=== PATIENT | female | born 1980 | race Hispanic/Latino ===

== ENCOUNTER 2017-08-11 14:59 | Emergency (ER) | payer OTHER ==
[~2017-08-11] VITALS: Ht 152.4 cm; Wt 78.9 kg
[2017-08-11 16:33] LABS: BASOPHILS # (AUTO) 0.1 (0.0-0.1); BASOPHILS % 0.6 % (0.0-1.0); EOSINOPHILS # (AUTO) 0.1 (0.0-0.4); EOSINOPHILS % 0.9 % (0.0-6.0); HEMATOCRIT 32.5 % (34.2-44.1); HEMOGLOBIN 9.6 g/dL (12.0-16.0); LYMPHOCYTES # (AUTO) 2.1 (1.0-3.2); MEAN CORPUSCULAR HEMOGLOBIN 21.2 pg (28-32); MEAN CORPUSCULAR HGB CONC 29.5 g/dL (31-35); MEAN CORPUSCULAR VOLUME 71.7 fL (81-99); MONOCYTES # (AUTO) 0.6 (0.2-0.8); MONOCYTES % 6.3 % (4.4-11.3); NEUTROPHILS # (AUTO) 6.1 (2.1-6.9); PLATELET COUNT 228 x10e3/uL (140-360); RED BLOOD COUNT 4.53 x10e6/uL (3.6-5.1); RED CELL DISTRIBUTION WIDTH 17.9 % (11.7-14.4)
[2017-08-11 16:34] LABS: BILIRUBIN,URINE 1+ (NEGATIVE); CLARITY,URINE CLEAR (CLEAR); COLOR,URINE YELLOW (YELLOW); KETONES,URINE TRACE (NEGATIVE); LEUKOCYTE ESTERASE ,URINE 1+ (NEGATIVE); NITRITE,URINE NEGATIVE (NEGATIVE); PROTEIN,URINE DIPSTICK NEGATIVE (NEGATIVE); URINE UROBILINOGEN 4 mg/dL (0.2 - 1)
[2017-08-11 16:38] LABS: PREGNANCY TEST, URINE NEGATIVE (NEGATIVE)
[2017-08-11 16:43] LABS: ALANINE AMINOTRANSFERASE 111 IU/L (0-55); ALBUMIN 3.5 g/dL (3.5-5.0); ALBUMIN/GLOBULIN RATIO 0.8 (0.8-2.0); ALKALINE PHOSPHATASE 105 IU/L (40-150); ANION GAP 11.6 mmol/L (8-16); BLOOD UREA NITROGEN 13 mg/dL (7-26); BUN/CREATININE RATIO 15 (6-25); CALCIUM 9.2 mg/dL (8.4-10.2); CARBON DIOXIDE 26 mmol/L (22-29); CHLORIDE 105 mmol/L (98-107); CREATININE, SERUM 0.84 mg/dL (0.57-1.11); EST GLOMERULAR FILTRATION RATE > 60 ML/MIN (60-); GLUCOSE 89 mg/dL (74-118); POTASSIUM 3.6 mmol/L (3.5-5.1); SODIUM 139 mmol/L (136-145)
[2017-08-11 16:55] LABS: BACTERIA,URINE FEW /HPF; EPITHELIAL CELLS,URINE FEW /LPF; WBC,URINE (MAN) 0-5 /HPF (0-5)
[2017-08-11] MEDS ORDERED: IOPAMIDOL 370 MG/ML 200 ML INFUS..BTL INJ ONE (17:31)
--- NOTE | 2017-08-11 17:56 | Diagnostic Imaging Report ---
PROCEDURE: CT ABDOMEN AND PELVIS WITH CONTRAST TECHNIQUE: The abdomen and pelvis were scanned utilizing a multidetector helical scanner from the diaphragm to the lesser trochanter after the IV administration of 100 cc of Isovue 370 and the oral administration of water. Coronal and sagittal multiplanar reformations were obtained. COMPARISON: None. INDICATIONS: LEFT UPPER QUADRANT PAIN FINDINGS: LOWER THORAX: 2 mm pulmonary nodule in the left lower lobe (series 2, image 8). HEPATOBILIARY: Borderline hepatomegaly, measuring 15.5 cm in the right midclavicular line. Decreased attenuation of the parenchyma compared to the spleen, consistent with mild steatosis. No focal lesions. No biliary ductal dilation. Gallbladder is unremarkable. SPLEEN: No splenomegaly. PANCREAS: No focal masses or ductal dilatation. ADRENALS: No adrenal nodules. KIDNEYS/URETERS: No hydronephrosis, stones, or solid mass lesions. PELVIC ORGANS/BLADDER: Bladder and uterus are unremarkable. Small amount of fluid in the endometrial cavity. No adnexal masses. PERITONEUM / RETROPERITONEUM: No free air or fluid. LYMPH NODES: No lymphadenopathy. VESSELS: Unremarkable. GI TRACT: No bowel dilation or evidence of obstruction. No pericolonic inflammatory changes. The appendix is identified, and normal in caliber. BONES AND SOFT TISSUES: No aggressive lytic or sclerotic lesion. Mild grade 1 anterolisthesis of L5 on S1 secondary to bilateral pars interarticularis defects. IMPRESSION: 1. no acute abdominopelvic abnormalities. Specifically, no acute abnormal findings in the left upper quadrant to explain the patient's pain. 2. Borderline hepatomegaly with mild steatosis. No focal lesions. Ry Clement M.D. Dictated by: Ry Clement M.D. on 08/11/2017 at 18:05 Electronically approved by: Ry Clement M.D. on 08/11/2017 at 18:05
[2017-08-12] MEDS ORDERED: SODIUM CHLORIDE 0.9% INJ 50 ML BAG IV ONE (08:47)
[2017-08-24] MEDS ORDERED: DICYCLOMINE HCL20 MG PO (11:26)
[2017-08-24] MEDS ORDERED: FERROUS SULFAT325 MG PO (11:27)
[2017-08-24] MEDS ORDERED: LEVOTHYROXINE75 MCG PO (11:27)
[2017-08-24] MEDS ORDERED: NORGESTIMATE-E1 EAC1 PO (11:28)
== END 2017-08-11 19:07 | disposition home or self-care (01) ==
LOC: ER 14:59
DX: R10.12 Left upper quadrant pain (principal); R11.0 Nausea; D25.9 Leiomyoma of uterus, unspecified; E03.9 Hypothyroidism, unspecified
CPT/HCPCS: 36415; 74177; 80053; 81001; 81025; 85025; 87086; 99284; Q9967

== ENCOUNTER 2017-08-13 16:30 | Emergency (ER) | payer OTHER ==
[~2017-08-13] VITALS: Ht 152.4 cm; Wt 78.9 kg
[2017-08-13] MEDS ORDERED: ONDANSETRON HCL INJ 2 MG/ML VIAL IV STA (17:48)
[2017-08-13] MEDS ORDERED: MORPHINE SULFATE 2 MG/ML SYR IV STA (17:48)
[2017-08-13 18:19] LABS: CLARITY,URINE CLOUDY (CLEAR); COLOR,URINE STRAW (YELLOW)
[2017-08-13 18:20] LABS: BILIRUBIN,URINE NEGATIVE (NEGATIVE); KETONES,URINE NEGATIVE (NEGATIVE); LEUKOCYTE ESTERASE ,URINE TRACE (NEGATIVE); NITRITE,URINE NEGATIVE (NEGATIVE); PROTEIN,URINE DIPSTICK NEGATIVE (NEGATIVE); URINE UROBILINOGEN 0.2 mg/dL (0.2 - 1)
[2017-08-13 18:28] LABS: BASOPHILS % 0.4 % (0.0-1.0); EOSINOPHILS # (AUTO) 0.2 (0.0-0.4); EOSINOPHILS % 2.1 % (0.0-6.0); HEMATOCRIT 31.8 % (34.2-44.1); HEMOGLOBIN 9.3 g/dL (12.0-16.0); LYMPHOCYTES # (AUTO) 2.1 (1.0-3.2); LYMPHOCYTES % 24.7 % (18.0-39.1); MEAN CORPUSCULAR HEMOGLOBIN 21.1 pg (28-32); MEAN CORPUSCULAR HGB CONC 29.2 g/dL (31-35); MEAN CORPUSCULAR VOLUME 72.3 fL (81-99); MONOCYTES # (AUTO) 0.7 (0.2-0.8); MONOCYTES % 8.6 % (4.4-11.3); NEUTROPHILS # (AUTO) 5.4 (2.1-6.9); NEUTROPHILS % 63.8 % (38.7-80.0); PLATELET COUNT 245 x10e3/uL (140-360); RED CELL DISTRIBUTION WIDTH 17.9 % (11.7-14.4)
[2017-08-13 18:43] LABS: AMORPHOUS SEDIMENT,URINE MANY (FEW); BACTERIA,URINE FEW /HPF; EPITHELIAL CELLS,URINE FEW /LPF; RBC,URINE 0-5 /HPF (0-5)
[2017-08-13 18:49] LABS: ALANINE AMINOTRANSFERASE 132 IU/L (0-55); ALBUMIN 3.6 g/dL (3.5-5.0); ALBUMIN/GLOBULIN RATIO 0.8 (0.8-2.0); ALKALINE PHOSPHATASE 109 IU/L (40-150); ANION GAP 11.7 mmol/L (8-16); BLOOD UREA NITROGEN 12 mg/dL (7-26); BUN/CREATININE RATIO 15 (6-25); CARBON DIOXIDE 25 mmol/L (22-29); CHLORIDE 105 mmol/L (98-107); CREATININE, SERUM 0.79 mg/dL (0.57-1.11); EST GLOMERULAR FILTRATION RATE > 60 ML/MIN (60-); GLUCOSE 83 mg/dL (74-118); POTASSIUM 3.7 mmol/L (3.5-5.1); SODIUM 138 mmol/L (136-145)
--- NOTE | 2017-08-13 20:49 | Diagnostic Imaging Report ---
CHEST SINGLE (PORTABLE), 08/13/2017 8:08 PM Technique: CHEST SINGLE (PORTABLE) Comparison: None available. Clinical history: Left-sided abdominal pain Findings: Unremarkable portable appearance of the heart, mediastinum, lungs and pleural spaces. No free air in the visualized upper abdomen. Radiopaque densities overlying the left medial upper hemithorax may be artifactual. Impression: 1. Lines/Tubes: None 2. No acute abnormality. Signed by: Dr Shilpa Hart MD on 08/13/2017 8:46 PM
[2017-08-13] MEDS ORDERED: ACETAMINOPHEN/CODEINE 300MG - 30MG TAB PO ONE (21:15)
[2017-08-13 22:19] VITALS: BP 139/68
[2017-08-24] MEDS ORDERED: DICYCLOMINE HCL20 MG PO (11:26)
[2017-08-24] MEDS ORDERED: FERROUS SULFAT325 MG PO (11:27)
[2017-08-24] MEDS ORDERED: LEVOTHYROXINE75 MCG PO (11:27)
[2017-08-24] MEDS ORDERED: NORGESTIMATE-E1 EAC1 PO (11:28)
== END 2017-08-13 22:21 | disposition home or self-care (01) ==
LOC: ER 16:30
DX: R10.12 Left upper quadrant pain (principal); R11.2 Nausea with vomiting, unspecified; R05 Cough; J20.9 Acute bronchitis, unspecified
CPT/HCPCS: 36415; 71010; 80053; 81001; 85025; 87086; 93005; 99284; J2270; J2405

== ENCOUNTER → 2017-08-25 | Day surgery (SDC) | payer OTHER ==
[~2017-08-25] MED LIST: DICYCLOMINE HCL20 MG PO; FENTANYL CITRATE/PF 100MCG/2 ML INJ ONE; FERROUS SULFAT325 MG PO; LEVOTHYROXINE75 MCG PO; LIDOCAINE HCL 2% LOCAL INJ 5 ML SDV VIAL INJ ONE; MIDAZOLAM HCL 2 MG/2 ML VIAL ONE; NORGESTIMATE-E1 EAC1 PO; PANTOPRAZOLE 40 MG 10ML VIAL ONE; PROPOFOL IV EMULSION 10 MG/ML 50 ML VIAL ONE; ZOFRAN ODT4 MG PO
--- NOTE | 2017-08-25 11:46 | Operative Report ---
DATE OF PROCEDURE: August 25, 2017 REFERRING PHYSICIAN: Dr. Felipa Bunch PROCEDURE PERFORMED: Esophagogastroduodenoscopy with biopsies and polypectomy. INDICATIONS FOR ESOPHAGOGASTRODUODENOSCOPY: Upper abdominal pain, nausea and vomiting. MEDICATION: Patient was done under MAC. Please see anesthesiologist's note. PROCEDURE: With the patient in left lateral decubitus position, flexible fiberoptic Olympus gastroscope was introduced into the esophagus under direct visualization without any difficulty. There was some patchy erythema noted in distal esophagus. The scope was then advanced with ease into the stomach. Mucosa overlying the antrum revealed some patchy erythema and low-grade edema, and biopsies were obtained and sent to stain for H. pylori. The mucosa overlying the distal body appeared somewhat atrophic and biopsies were obtained to rule out atrophic gastritis. The pylorus was of normal contour and shape. Was intubated with ease and the scope was advanced all the way to the 2nd portion of the duodenum. The scope was then withdrawn slowly. Mucosa overlying the proximal 2nd portion and the duodenal bulb appeared to be within normal limits. The scope was then withdrawn back into the stomach and retroflexed. Mucosa overlying the fundus and the cardia appeared to be within normal limits. A minute polyp was noted in the proximal body along the posterior wall and that was partially excised with cold biopsy forceps. The scope was then straightened out. The stomach was decompressed, the scope subsequently withdrawn. Patient tolerated the procedure well. IMPRESSION: 1. Distal esophagitis, mild. 2. Gastritis, antrum, biopsied. Biopsies sent to stain for Helicobacter pylori. 3. Rule out atrophic gastritis, distal body. 4. Gastric polyp, upper body, posterior wall. Partially excised with cold biopsy forceps. PLAN: Follow up histology. Initiate Protonix 40 mg 1 p.o. q.a.m. a.c. Job#: [id number] [place] cc:FELIPA BUNCH DO
== END | disposition home or self-care (01) ==
LOC: OR 08:08
PROVIDERS: ATTEND Internal Medicine Gastroenterology
DX: K29.50 Unspecified chronic gastritis without bleeding (principal); K31.7 Polyp of stomach and duodenum; K20.9 Esophagitis, unspecified; A04.8 Other specified bacterial intestinal infections; R63.4 Abnormal weight loss; R42 Dizziness and giddiness; D64.9 Anemia, unspecified; E03.9 Hypothyroidism, unspecified; Z68.32 Body mass index [BMI] 32.0-32.9, adult
CPT/HCPCS: 43239; 81025; J2001; J2250

== ENCOUNTER 2017-09-17 22:02 | Emergency (ER) | payer OTHER ==
[~2017-09-17] VITALS: Ht 152.4 cm; Wt 78.9 kg
[~2017-09-17 22:02] MED LIST changes: -FENTANYL CITRATE/PF 100MCG/2 ML INJ ONE; -LIDOCAINE HCL 2% LOCAL INJ 5 ML SDV VIAL INJ ONE; -MIDAZOLAM HCL 2 MG/2 ML VIAL ONE; -PANTOPRAZOLE 40 MG 10ML VIAL ONE; -PROPOFOL IV EMULSION 10 MG/ML 50 ML VIAL ONE; -ZOFRAN ODT4 MG PO
--- OUTSIDE RECORDS SUMMARY | 2017-09-17 22:05 | XMS REPORT ---
Author Author [facility] Address Unknown Phone Unavailable Care Team Providers Care Cottage Master Name Role Phone CLAUDIA HINSON Unavailable Unavailable Problems This patient has no known problems. Allergies, Adverse Reactions, Alerts This patient has no known allergies or adverse reactions. Medications This patient has no known medications. Encounters Start Date/Time End Date/Time Encounter Type Admission Type Attending [facility] Care Facility Care Department Encounter ID 2017-09-02 10:52:10 2017-09-02 10:52:10 Outpatient [facility] [id number] 2017-08-30 00:00:00 2017-08-30 00:00:00 Outpatient [facility] [id number] 2017-08-19 06:22:07 2017-08-19 06:22:07 Emergency [facility] [id number] 2017-07-28 11:51:34 2017-07-28 11:51:34 Outpatient [facility] [id number] 2017-07-11 00:00:00 2017-07-11 00:00:00 Outpatient [facility] [id number] 2017-06-29 09:19:29 2017-06-29 09:19:29 Outpatient [facility] [id number] 2017-06-29 00:00:00 2017-06-29 00:00:00 Outpatient [facility] [id number] 2017-06-23 12:59:17 2017-06-23 12:59:17 Outpatient [facility] [id number] 2017-05-16 15:46:45 2017-05-16 15:46:45 Outpatient [facility] [id number] 2017-04-21 07:38:33 2017-04-21 07:38:33 Outpatient [facility] [id number] Results Test Description Test Time Test Comments Text Results Atomic Results Result Comments CHEST SINGLE (PORTABLE) [place] [address] Patient Name: BETTY HUDSON MR #: [id number] : 1980 Age/Sex: 37/F Req #: [id number] Adm Physician: Ordered by: ANN MIN NP Report #: [id number] Location: ER Room/Bed: Procedure: [id number] DX/CHEST SINGLE (PORTABLE) Exam Date: 08/13/17 Exam Time: 2014 REPORT STATUS: Signed CHEST SINGLE ( PORTABLE), 08/13/2017 8:08 PM Technique: CHEST SINGLE (PORTABLE) Comparison: None available. Clinical history: Left-sided abdominal pain Findings: Unremarkable portable appearance of the heart, mediastinum, lungs and pleural spaces. No free air in the visualized upper abdomen. Radiopaque densities overlying the left medial upper hemithorax may be artifactual. Impression: 1. Lines/Tubes: None 2. No acute abnormality. Signed by: Dr Maribel Hart MD on 08/13/2017 8:46 PM Dictated By: MARIBEL HART MD 45 Transcribed By: TAMEKA on 08/13/172045 COPY TO: [facility] CT ABDOMEN/PELVIS [place] [address] Patient Name: BETTY HUDSON MR #: [id number] : 1980 Age/Sex: 37/F Req #: [id number] Adm Physician: Ordered by: CLAUDIA HINSON MD Report #: [id number] Location: ER Room/Bed: Procedure: [id number] CT/CT ABDOMEN/PELVIS W Exam Date: 08/11/17 Exam Time: 1723 REPORT STATUS: Signed PROCEDURE: CT ABDOMEN AND PELVIS WITH CONTRAST TECHNIQUE: The abdomen and pelvis were scanned utilizing a multidetector helical scanner from the diaphragm to the lesser trochanter after the IV administration of 100 cc of Isovue 370 and the oral administration of water. Coronal and sagittal multiplanar reformations were obtained. COMPARISON: None. INDICATIONS: LEFT UPPER QUADRANT PAIN FINDINGS: LOWER THORAX: 2 mm pulmonary nodule in the left lower lobe (series 2, image 8). HEPATOBILIARY: Borderline hepatomegaly, measuring 15.5 cm in the right midclavicular line. Decreased attenuation of the parenchyma compared to the spleen, consistent with mild steatosis. No focal lesions. No biliary ductal dilation. Gallbladder is unremarkable. SPLEEN: No splenomegaly. PANCREAS: No focal masses or ductal dilatation. ADRENALS: No adrenal nodules. KIDNEYS/URETERS: No hydronephrosis , stones, or solid mass lesions. PELVIC ORGANS/BLADDER: Bladder and uterus are unremarkable. Small amount of fluid in the endometrial cavity. No adnexal masses. PERITONEUM / RETROPERITONEUM: No free air or fluid. LYMPH NODES: No lymphadenopathy. VESSELS: Unremarkable. GI TRACT: No bowel dilation or evidence of obstruction. No pericolonic inflammatory changes. The appendix is identified, and normal in caliber. BONES AND SOFT TISSUES: No aggressive lytic or sclerotic lesion. Mild grade 1 anterolisthesis of L5 on S1 secondary to bilateral pars interarticularis defects. IMPRESSION : 1. no acute abdominopelvic abnormalities. Specifically, no acute abnormal findings in the left upper quadrant to explain the patient's pain. 2. Borderline hepatomegaly with mild steatosis. No focal lesions. Madie Clement M.D. Dictated by: Madie Clement M.D. on 2016 at 18:05 Electronically approved by: Madie Clement M.D. on at 18:05 Dictated By: MADIE CLEMENT MD 04 Transcribed By: KIA on 08/11/171804 COPY TO: CLAUDIA HINSON MD
[2017-09-17] MEDS ORDERED: ZOFRAN ODT4 MG PO (22:12)
[2017-09-17] MEDS ORDERED: DIPHENHYDRAMINE HCL INJ 50 MG/ML VIAL IV ONE (22:15)
[2017-09-17] MEDS ORDERED: METHYLPREDNISOLONE SOD SUCC 125 MG/2ML VIAL IV STA (22:15)
[2017-09-17] MEDS ORDERED: FAMOTIDINE 20 MG/2 ML VIAL IV STA (22:15)
[2017-09-18] MEDS ORDERED: DIPHENHYDRAMINE HCL INJ 50 MG/ML VIAL IV ONE (00:15)
[2017-09-18] MEDS ORDERED: SODIUM CHLORIDE 0.9% 500ML 500 ML IV ONE (00:15)
[2017-09-18] MEDS ORDERED: DEXAMETHASONE SOD PHOS 10 MG/1 ML VIAL IV ONE (00:15)
[2017-09-18] MEDS ORDERED: DIPHENHYDRAMINE HCL INJ 1 ML ONE (00:54)
== END 2017-09-18 02:02 | disposition home or self-care (01) ==
LOC: ER 22:02
DX: L50.0 Allergic urticaria (principal)
CPT/HCPCS: 99284; J1100; J1200 ×2; J2930; J7040